=== PATIENT | female | born 1960 | race Caucasian/White ===

== ENCOUNTER 2017-06-13 11:49 | Inpatient (IN) | payer OTHER ==
[~2017-06-13] VITALS: Ht 149.9 cm; Wt 53.7 kg
[~2017-06-13 11:49] MED LIST: ATIVAN1 MG PO; CELEXA20 MG PO; IMITREX6 MG/0.5 M SC; LEVETIRACETAM500 MG PO; NEURONTIN300 MG PO; PROTONIX40 MG PO; TOPIRAMATE25 MG PO; TORADOL10 MG PO; ULTRAM50 MG PO
[2017-06-13 12:05] LABS: HEMATOCRIT 37.3 % (36.0-46.0); HEMOGLOBIN 11.3 G/DL (11.9-15.5); MCH 29.2 PG (29.0-34.0); MCHC 30.3 G/DL (30.0-36.0); MCV 96.4 FL (83-99); PLATELET COUNT 321 K/uL (156-360); RBC DIS.WIDTH-CV 13.8 % (11.8-14.6); RBC DIS.WIDTH-SD 49.1 % (39-53); RED BLOOD COUNT 3.87 M/uL (3.80-5.20); WHITE BLOOD COUNT 17.5 K/uL (4.1-10.2)
[2017-06-13 12:15] LABS: AMYLASE 60 IU/L (1-118); CHLORIDE 101 mEq/L (99-109); SODIUM 136 mEq/L (136-147)
[2017-06-13 12:17] LABS: GLUCOSE 212 mg/dL (70-99)
[2017-06-13 12:18] LABS: POTASSIUM 6.3 mEq/L (3.7-5.4)
[2017-06-13 12:20] LABS: SERUM ETHYL ALCOHOL < 10 mg/dL
[2017-06-13 12:21] LABS: CREATININE 1.6 mg/dL (0.6-1.3); GFR ESTIMATE (CALCULATED) 35 mL/min/; UREA NITROGEN (BUN) 10 mg/dL (9-23)
[2017-06-13 12:24] LABS: LIPASE 21 U/L (1.0-51.0)
[2017-06-13 12:26] LABS: TROP-I INTERPRETATION NEGATIVE; TROPONIN-I < 0.01 ng/mL (0.0-0.30)
[2017-06-13 12:42] LABS: BASE EXCESS -6.9 mEq/L (-3 to +3); BICARBONATE 20.6 mEq/L (22-26); CARBOXY HGB 5.5 % (0-5); METHEMOGLOBIN 0.4 % (0-1.5); PCO2 48 mm Hg (35-45); PO2 276 mm Hg (80-100)
[2017-06-13 12:46] LABS: COMMENTS - BLOOD GASES A+C+; DEVICE VENT; FI02 100 %; MECHANICAL RATE 12 resp/min; MODE AC/VC; PEEP 7 CM/H20; SITE RR; TIDAL VOLUME 450 ML; TOTAL RESP RATE 12 resp/min; pH 7.24 (7.35-7.45)
[2017-06-13 12:56] LABS: ABS NEUTROPHIL COUNT 11.4; ANISOCYTOSIS 1+; ATYPICAL LYMPHOCYTE 1.7 %; BAND NEUTROPHILS 4.2 % (0-8.0); BASOPHILS 0.9 %; EOSINOPHIL ABS CT 0.4; EOSINOPHILS 2.5 % (0-5.0); LYMPHOCYTES 24.6 % (15.0-45.0); MONOCYTES 5.1 % (0-9.0); PLAT.SUFFICIENCY ADEQUATE
[2017-06-13 13:16] LABS: APPEARANCE SL.HAZY ((CLEAR)); BILIRUBIN NEGATIVE; BLOOD SMALL; COLOR YELLOW ((YELLOW)); GLUCOSE (STRIP) NEGATIVE; KETONES NEGATIVE; LEUKOCYTES TRACE; NITRITE NEGATIVE; PROTEIN (STRIP) NEGATIVE; SPECIFIC GRAVITY 1.005 (1.000-1.030); UROBILINOGEN 0.2 MG/DL (0.2-1.0)
[2017-06-13 13:20] LABS: BACTERIA 2+ /HPF; CALCIUM OXALATE CRYSTALS 1+ /HPF; EPITHELIAL CELLS RARE /HPF; MUCUS TRACE /LPF; RED BLOOD CELLS 0-5 /HPF (0-5); UCUL ADDED? YES
[2017-06-13 13:35] LABS: AMPHETAMINE NEGATIVE (500 ng/mL); BARBITURATES NEGATIVE (200 ng/mL); BENZODIAZEPINES PRESUMPTIVE POSITIVE (150 ng/mL); BUPRENORPHINE NEGATIVE (10 ng/mL); COCAINE NEGATIVE (150 ng/mL); METHADONE NEGATIVE (200 ng/mL); METHAMPHETAMINE NEGATIVE (500 ng/mL); OPIATES (MORPHINE) NEGATIVE (100 ng/mL); OXYCODONE NEGATIVE (100 ng/mL); PHENCYCLIDINE NEGATIVE (25 ng/mL); PROPOXYPHENE NEGATIVE (300 ng/mL); THC CANNABINOIDS NEGATIVE (50 ng/mL); TRICYCLIC ANTIDEPRESSANTS NEGATIVE (300 ng/mL)
[2017-06-13] MEDS ORDERED: METOPROLOL TART50 MG PO (13:51)
[2017-06-13] MEDS ORDERED: VERAPAMIL HCL120 MG PO (13:52)
[2017-06-13] MEDS ORDERED: BUTALB-APAP-CA1 EACH PO (13:54)
[2017-06-13] MEDS ORDERED: MONTELUKAST SODI5 MG PO (13:56)
[2017-06-13 13:57] LABS: BASE EXCESS -4.3 mEq/L (-3 to +3); CARBOXY HGB 5.4 % (0-5); METHEMOGLOBIN 0.7 % (0-1.5)
[2017-06-13] MEDS ORDERED: LORAZEPAM1 MG PO (13:57)
[2017-06-13 13:58] LABS: COMMENTS - BLOOD GASES A+C+; DEVICE 980; FI02 80 %; MECHANICAL RATE 20 resp/min; MODE A/C; PCO2 33 mm Hg (35-45); PEEP 7 CM/H20; PO2 177 mm Hg (80-100); SITE LR; TIDAL VOLUME 450 ML; TOTAL RESP RATE 20 resp/min; pH 7.39 (7.35-7.45)
[2017-06-13 14:05] LABS: BENZODIAZEPINES, URINE SCREEN Negative (200 ng/mL)
[2017-06-13 14:16] LABS: CHLORIDE 102 mEq/L (99-109); POTASSIUM 5.7 mEq/L (3.7-5.4); SODIUM 134 mEq/L (136-147)
[2017-06-13 14:18] LABS: GLUCOSE 147 mg/dL (70-99)
[2017-06-13 14:22] LABS: CREATININE 1.5 mg/dL (0.6-1.3); GFR ESTIMATE (CALCULATED) 38 mL/min/
[2017-06-13 14:23] LABS: UREA NITROGEN (BUN) 11 mg/dL (9-23)
[2017-06-13 17:30] VITALS: BP 160/75
[2017-06-13 18:00] VITALS: BP 164/75
[2017-06-13 19:00] VITALS: BP 158/89
[2017-06-13 19:46] LABS: THYROTROPIN (TSH) 2.1 MIU/L (0.4-5.5)
[2017-06-13 20:00] VITALS: BP 142/78
[2017-06-13 21:00] VITALS: BP 106/84
[2017-06-13 22:00] VITALS: BP 100/63
[2017-06-14] VITALS (15 sets, daily range): BP systolic 0–187; BP diastolic 0–107
[2017-06-14 04:48] LABS: CARBON DIOXIDE (BICARBONATE) 27.9 MEQ/L (20-31)
[2017-06-14 04:49] LABS: BASOPHIL (%) 0.2 % (0-1); EOSINOPHIL (%) 0.4 % (0-5); EOSINOPHIL COUNT 0.1 K/uL (0-0.3); HEMATOCRIT 32.9 % (36.0-46.0); IMMATURE GRANULOCYTE (%) 0.8 % (0.0-0.7); LYMPHOCYTE (%) 14.1 % (15-42); LYMPHOCYTE COUNT 1.8 K/uL (1.0-2.8); MCH 29.1 PG (29.0-34.0); MCHC 33.4 G/DL (30.0-36.0); MONOCYTE (%) 5.6 % (3-12); MONOCYTE COUNT 0.7 K/uL (0-0.8); NEUTROPHIL (%) 78.9 % (45-76); NEUTROPHIL COUNT 9.9 K/uL (1.8-6.4); PLATELET COUNT 243 K/uL (156-360); RBC DIS.WIDTH-CV 13.6 % (11.8-14.6); RBC DIS.WIDTH-SD 43.5 % (39-53); RED BLOOD COUNT 3.78 M/uL (3.80-5.20); WHITE BLOOD COUNT 12.6 K/uL (4.1-10.2)
[2017-06-14 04:56] LABS: CHLORIDE 101 mEq/L (99-109); SODIUM 134 mEq/L (136-147)
[2017-06-14 05:02] LABS: UREA NITROGEN (BUN) 12 mg/dL (9-23)
[2017-06-14 05:03] LABS: GFR ESTIMATE (CALCULATED) > 59 mL/min/; GLUCOSE 78 mg/dL (70-99); POTASSIUM 4.5 mEq/L (3.7-5.4)
[2017-06-15 00:34] VITALS: BP 124/82
[2017-06-15 04:25] VITALS: BP 189/85
[2017-06-15 05:15] VITALS: BP 142/74
[2017-06-15 07:49] VITALS: BP 136/90
[2017-06-15 09:19] LABS: HEMATOCRIT 36.7 % (36.0-46.0); HEMOGLOBIN 12.6 G/DL (11.9-15.5); MCH 29.6 PG (29.0-34.0); MCHC 34.3 G/DL (30.0-36.0); MCV 86.2 FL (83-99); RBC DIS.WIDTH-CV 13.3 % (11.8-14.6); RBC DIS.WIDTH-SD 42.2 % (39-53); RED BLOOD COUNT 4.26 M/uL (3.80-5.20); WHITE BLOOD COUNT 11.6 K/uL (4.1-10.2)
[2017-06-15 09:43] LABS: CHLORIDE 97 MEQ/L (99-109); POTASSIUM 3.8 MEQ/L (3.7-5.4); SODIUM 130 MEQ/L (136-147)
[2017-06-15 09:46] LABS: PLAT.SUFFICIENCY ADEQUATE; PLATELET COUNT 242 K/uL (156-360)
[2017-06-15 09:48] LABS: CREATININE 0.9 MG/DL (0.6-1.3); GFR ESTIMATE (CALCULATED) > 59 mL/min/; UREA NITROGEN (BUN) 7 mg/dL (9-23)
[2017-06-15 09:50] LABS: GLUCOSE 115 mg/dL (70-99)
[2017-06-15 11:27] VITALS: BP 166/81
[2017-06-15] MEDS ORDERED: DULERA 100 MCG/13 GM IH (14:39)
[2017-06-15] MEDS ORDERED: SPIRIVA1 INHALATI IH (14:41)
[2017-06-15] MEDS ORDERED: EUCRISA60 GM TP (14:43)
[2017-06-15] MEDS ORDERED: VENTOLIN HFA18 GM IH (14:45)
[2017-06-15] MEDS ORDERED: VALSARTAN160 MG PO (15:36)
[2017-06-15] MEDS ORDERED: LEVAQUIN750 MG PO (15:38)
[2017-06-15 15:51] VITALS: BP 194/87
== END 2017-06-15 16:25 | disposition home or self-care (01) | DRG 208 ==
LOC: EME 11:49 → ENRESERV 15:40 → EDOF 15:51 → 4WEST 15:51 → 5SOUTH 15:51 → 4WEST 17:00 → ENRESERV 06-14 16:33 → 5SOUTH 06-14 18:12
PROVIDERS: Emergency Medicine; Internal Medicine; Internal Medicine Critical Care Medicine
PROC: 0BH17EZ Insertion of Endotracheal Airway into Trachea, Via Natural or Artificial Opening (ICD-10-PCS; principal; 2017-06-13)
PROC: 5A1945Z Respiratory Ventilation, 24-96 Consecutive Hours (ICD-10-PCS; principal; 2017-06-13)
DX: J44.1 Chronic obstructive pulmonary disease with (acute) exacerbation (principal); N39.0 Urinary tract infection, site not specified; R00.1 Bradycardia, unspecified; J44.0 Chronic obstructive pulmonary disease with (acute) lower respiratory infection; B96.20 Unspecified Escherichia coli [E. coli] as the cause of diseases classified elsewhere; J96.01 Acute respiratory failure with hypoxia; Q07.00 Arnold-Chiari syndrome without spina bifida or hydrocephalus; T68.XXXA Hypothermia, initial encounter; I48.0 Paroxysmal atrial fibrillation; E87.2 Acidosis; I10 Essential (primary) hypertension; I27.20 Pulmonary hypertension, unspecified; E87.5 Hyperkalemia; G40.909 Epilepsy, unspecified, not intractable, without status epilepticus; K21.9 Gastro-esophageal reflux disease without esophagitis; F41.9 Anxiety disorder, unspecified; F32.9 Major depressive disorder, single episode, unspecified; T44.7X5A Adverse effect of beta-adrenoreceptor antagonists, initial encounter; I34.0 Nonrheumatic mitral (valve) insufficiency; J98.11 Atelectasis; G62.9 Polyneuropathy, unspecified; F17.210 Nicotine dependence, cigarettes, uncomplicated; G43.909 Migraine, unspecified, not intractable, without status migrainosus; Z80.0 Family history of malignant neoplasm of digestive organs; Z80.1 Family history of malignant neoplasm of trachea, bronchus and lung
CPT/HCPCS: 36600; 70450; 71045; 80047; 80048; 80048 91; 81003; 82150; 82803; 83605; 83690; 84443; 84484; 84999; 85025; 85027; 85610; 85730; 86850; 86900; 86901; 87040; 87070; 87077; 87086; 87186; 87205; 87502; 87641; 87801; 93005; 93306; 94799; 99281; 99285; G0480; J0360; J0461; J0696; J1265; J1650; J2250; J2543; J2704; J3030; J3370; J7030

== ENCOUNTER 2017-09-12 15:21 | Inpatient (IN) | payer OTHER ==
[~2017-09-12] VITALS: Ht 149.9 cm; Wt 63.3 kg
[~2017-09-12 15:21] MED LIST changes: +BUTALB-APAP-CA1 EACH PO; +DULERA 100 MCG/13 GM IH; +EUCRISA60 GM TP; +LEVAQUIN750 MG PO; +LORAZEPAM1 MG PO; +METOPROLOL TART50 MG PO; +MONTELUKAST SODI5 MG PO; +SPIRIVA1 INHALATI IH; +VALSARTAN160 MG PO; +VENTOLIN HFA18 GM IH; +VERAPAMIL HCL120 MG PO
[2017-09-12 16:32] LABS: BASOPHIL (%) 0.2 % (0-1); EOSINOPHIL (%) 0.1 % (0-5); HEMATOCRIT 32.3 % (36.0-46.0); HEMOGLOBIN 11.2 G/DL (11.9-15.5); IMMATURE GRANULOCYTE (%) 0.7 % (0.0-0.7); LYMPHOCYTE COUNT 1.6 K/uL (1.0-2.8); MCH 29.2 PG (29.0-34.0); MCHC 34.7 G/DL (30.0-36.0); MCV 84.1 FL (83-99); MONOCYTE COUNT 0.5 K/uL (0-0.8); NEUTROPHIL COUNT 20.7 K/uL (1.8-6.4); PLATELET COUNT 330 K/uL (156-360); RBC DIS.WIDTH-CV 14.4 % (11.8-14.6); RBC DIS.WIDTH-SD 44.4 % (39-53); RED BLOOD COUNT 3.84 M/uL (3.80-5.20)
[2017-09-12 16:33] LABS: CARBOXY HGB 4.3 % (0-5); COMMENTS - BLOOD GASES A+C+; DEVICE AEROSOL MASK; METHEMOGLOBIN 1.2 % (0-1.5); O2 FLOW 7 L/MIN; PCO2 < 18 mm Hg (35-45); PO2 112 mm Hg (80-100); SITE RR; TOTAL RESP RATE 28 resp/min
[2017-09-12 16:34] LABS: pH 7.64 (7.35-7.45)
[2017-09-12 16:53] LABS: ALBUMIN 4.2 g/dL (3.2-4.8); CHLORIDE 101 mEq/L (99-109); POTASSIUM 4.7 mEq/L (3.7-5.4); SODIUM 135 mEq/L (136-147)
[2017-09-12 16:55] LABS: GLUCOSE 87 mg/dL (70-99); TOTAL PROTEIN 6.9 g/dL (6.4-8.3)
[2017-09-12 16:57] LABS: TOTAL BILIRUBIN 0.5 mg/dL (0.0-1.0)
[2017-09-12 16:59] LABS: ALKALINE PHOSPHATASE 105 IU/L (3-129); CREATININE 1.1 mg/dL (0.6-1.3); GFR ESTIMATE (CALCULATED) 54 mL/min/
[2017-09-12 17:00] LABS: UREA NITROGEN (BUN) 17 mg/dL (9-23)
[2017-09-12 17:01] LABS: AST (GOT) 32 IU/L (2-34)
[2017-09-12 17:02] LABS: ALT (GPT) 22 IU/L (3-49)
[2017-09-12 17:07] LABS: TROP-I INTERPRETATION NEGATIVE; TROPONIN-I < 0.01 ng/mL (0.0-0.30)
[2017-09-12] MEDS ORDERED: DIOVAN160 MG PO (17:55)
[2017-09-12] MEDS ORDERED: HYDROCHLOROTHIA25 MG PO (17:58)
[2017-09-12] MEDS ORDERED: TRELEGY ELLIPT1 EACH IH (17:58)
[2017-09-12] MEDS ORDERED: LITE COAT ASPI325 M1 PO (17:58)
[2017-09-12] MEDS ORDERED: MOBIC15 MG PO (17:59)
[2017-09-12] MEDS ORDERED: XOPENEX0.63 MG/3 IH ×2 (17:59)
[2017-09-12 21:10] VITALS: BP 101/52
[2017-09-12 23:15] VITALS: BP 96/52
[2017-09-13 03:50] VITALS: BP 137/61
[2017-09-13 05:30] LABS: BASOPHIL (%) 0.1 % (0-1); EOSINOPHIL (%) 0 % (0-5); HEMATOCRIT 27.9 % (36.0-46.0); HEMOGLOBIN 9.5 G/DL (11.9-15.5); IMMATURE GRANULOCYTE (%) 0.9 % (0.0-0.7); LYMPHOCYTE (%) 4.4 % (15-42); LYMPHOCYTE COUNT 0.7 K/uL (1.0-2.8); MCH 29.2 PG (29.0-34.0); MCHC 34.1 G/DL (30.0-36.0); MCV 85.8 FL (83-99); MONOCYTE (%) 0.4 % (3-12); MONOCYTE COUNT 0.1 K/uL (0-0.8); NEUTROPHIL (%) 94.2 % (45-76); NEUTROPHIL COUNT 15.5 K/uL (1.8-6.4); PLATELET COUNT 292 K/uL (156-360); RBC DIS.WIDTH-CV 14.7 % (11.8-14.6); RBC DIS.WIDTH-SD 46.7 % (39-53); RED BLOOD COUNT 3.25 M/uL (3.80-5.20); WHITE BLOOD COUNT 16.4 K/uL (4.1-10.2)
[2017-09-13 06:06] LABS: CHLORIDE 100 MEQ/L (99-109); CREATININE 0.9 MG/DL (0.6-1.3); GFR ESTIMATE (CALCULATED) > 59 mL/min/; POTASSIUM 4.8 MEQ/L (3.7-5.4); SODIUM 130 MEQ/L (136-147); UREA NITROGEN (BUN) 18 mg/dL (9-23)
[2017-09-13 06:08] LABS: GLUCOSE 148 mg/dL (70-99)
[2017-09-13 07:00] VITALS: BP 109/53
[2017-09-13 16:20] VITALS: BP 136/63
[2017-09-13 19:25] VITALS: BP 127/60
[2017-09-13 23:25] VITALS: BP 136/63
== END 2017-09-14 08:08 | disposition left against medical advice (07) | DRG 194 ==
LOC: EME 15:21 → 2EAST 19:20 → EDOF 19:20 → ENRESERV 19:21 → 2EAST 20:24
PROVIDERS: Emergency Medicine; Family Medicine Sports Medicine
DX: J18.9 Pneumonia, unspecified organism (principal); J44.0 Chronic obstructive pulmonary disease with (acute) lower respiratory infection; J44.1 Chronic obstructive pulmonary disease with (acute) exacerbation; Q07.00 Arnold-Chiari syndrome without spina bifida or hydrocephalus; I48.0 Paroxysmal atrial fibrillation; R00.1 Bradycardia, unspecified; G89.29 Other chronic pain; G40.909 Epilepsy, unspecified, not intractable, without status epilepticus; I10 Essential (primary) hypertension; K21.9 Gastro-esophageal reflux disease without esophagitis; F17.200 Nicotine dependence, unspecified, uncomplicated; F43.20 Adjustment disorder, unspecified; F32.9 Major depressive disorder, single episode, unspecified; F41.9 Anxiety disorder, unspecified; E87.4 Mixed disorder of acid-base balance; D64.9 Anemia, unspecified; M19.90 Unspecified osteoarthritis, unspecified site; E84.9 Cystic fibrosis, unspecified
CPT/HCPCS: 36600; 71045; 71275; 80048; 80053; 81003; 82803; 83605; 83880; 84484; 85025; 85379; 87040; 87070; 87205; 87449; 93005; 94640; 94640 76; 94760; 94799; 99202; 99281; 99285; J0456; J0696; J1650; J1885; J2060; J2270; J2930; J3010; J7120; J7512